=== PATIENT | female | born 1980 | race Caucasian/White ===

== ENCOUNTER 2020-07-25 00:14 | Emergency (ER) | payer OTHER ==
[2020-07-25 00:22] VITALS: BP 122/78; PULSE 80; RESP 20; TEMP 97.7
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
== END 2020-07-25 01:07 | disposition home or self-care (01) ==
LOC: EC 00:14
DX: Z04.1 Encounter for examination and observation following transport accident (principal); Z00.8 Encounter for other general examination; F41.9 Anxiety disorder, unspecified; F32.9 Major depressive disorder, single episode, unspecified; F17.200 Nicotine dependence, unspecified, uncomplicated; Z65.3 Problems related to other legal circumstances
CPT/HCPCS: 99283